=== PATIENT | female | born 1990 | race Caucasian/White ===

== ENCOUNTER 2019-05-04 09:34 | Emergency (ER) | payer OTHER ==
[2019-05-04 09:40] VITALS: BP 111/64; PULSE 85; TEMP 98.1; BMI 26.0
--- NOTE | 2019-05-04 09:50 | PDOC ---
History of Present Illness - General Chief Complaint: Pain Stated Complaint: lower abdominal pain and constipation Time Seen by Provider: 05/04/19 09:40 History Source: Patient Exam Limitations: No Limitations - History of Present Illness Travel History: No Initial Comments: 05/04/19 10:20 28y F no pmhx presents with complaint of abdominal pain. Patient started states that approximately 8 AM yesterday she began to have intermittent lower abdominal discomfort, stating feels like she needs to have bowel movement. Patient states that she took some [id number] laxatives, she did have a bowel movement last night with some improvement of her pain. Pain she describes as a sharp nonradiating discomfort Describing it as she feels like she needs to pass gas. There is no associated fever, chills, Nausea, vomiting. The patient's bowel movements are normal and are not particularly hard. Patient denies any other symptoms including Cough, shortness of breath, back pain, Vaginal bleeding, vaginal discharge, diarrhea, melena. Patient denies any history of abdominal surgery in the past. Her LMP was approximately 2 weeks ago. social: denies recreational drug use. smoking fPID in [facility] Past History - Past Medical History Allergies/Adverse Reactions: Allergies Allergy/AdvReac Type Severity Reaction Status Date / Time No Known Allergies Allergy Verified 05/04/19 09:35 Home Medications: Ambulatory Orders Fluoxetine HCl [Prozac] 40 mg PO HS 05/04/19 COPD: No Psychiatric Problems: Yes - Psycho Social/Smoking Cessation Hx Smoking History: Never smoked Hx Alcohol Use: Yes (occasionally) Drug/Substance Use Hx: No Review of Systems - Review of Systems Able to Perform ROS?: Yes Comments:: 05/04/19 10:23 Constitutional - no reported Fever, Chills, HEENT: no reported vision changes, sore throat Respiratory: no reported cough, sob, hemoptysis Cardiac: no reported chest pain, palpitations, light headedness, leg swelling Abd/GI: +abd pain, no reported nausea, vomiting, blood per rectum, melena, diarrhea : no reported dysuria, frequency, discharge Musculskelatal - no reported back pain, joint swelling skin - no reported bruising, erythema, rash neurological: no reported headache, numbness, focal weakness, tingling, ataxia, hematologic: no reported easy bruising, easy bleeding *Physical Exam - Vital Signs Last Vital Signs Temp Pulse Resp BP Pulse Ox 98.1 F 85 18 111/64 97 05/04/19 09:35 05/04/19 09:35 05/04/19 09:35 05/04/19 09:35 05/04/19 09:35 - Physical Exam 05/04/19 10:24 GENERAL: The patient is awake, alert, and fully oriented, Nontoxic - in no acute distress. HEAD: Normocephalic, atraumatic. EYES: extraocular movements intact, sclera anicteric, conjunctiva clear. ENT: Normal voice, Moist mucous membranes. NECK: Normal range of motion, supple LUNGS: Breath sounds equal, clear to auscultation bilaterally. No wheezes, no rhonchi, no rales. HEART: Regular rate and rhythm, normal S1 and S2 without murmur, rub or gallop. ABDOMEN: Soft, mild diffuse lower/suprapubic abd tenderness, No guarding, no rebound. No CVA tenderness EXTREMITIES: Normal range of motion, no edema. NEUROLOGICAL: No facial assymetry, Normal speech, PSYCH: Normal mood, normal affect. SKIN: Warm, Dry, normal turgor, ED Treatment Course - LABORATORY CBC & Chemistry Diagram: 05/04/19 09:55 05/04/19 09:55 Medical Decision Making - Medical Decision Making 05/04/19 12:49 The patient's blood work and UA are reviewed. The patient's ultrasound also reviewed noted for a likely partially ruptured cyst in the left ovary. After further history the patient notes that her pain was very severe this morning and then improved upon arrival to the point where the patient was deciding whether to come get evaluated or not. She has been relatively pain- free otherwise except for when I am pushing on her lower abdomen. Patient notes that she is feeling improved and she was asymptomatic. Without any abdominal pain at this time Considered possible appendicitis, diverticulitis however the patient has no other symptoms suggestive of it. So no acute onset of pain improvement I suspect it may be due to the partial a ruptured cyst I will refer the patient to INFORMATION OPERATOR, return precautions were discussed, shared decision making regarding further imaging. I discussed the physical exam findings, ancillary test results and final diagnoses with the patient. I answered all of the patient's questions. The patient was satisfied with the care received and felt comfortable with the discharge plan and treatment plan. The patient will call their primary care physician within 24 hours to arrange follow-up and will return to the Emergency Department with any new, persistent or worsening symptoms. Discharge - Discharge Information Problems reviewed: Yes Clinical Impression/Diagnosis: Ovarian cyst Qualifiers: Laterality: left Qualified Code(s): N83.202 - Unspecified ovarian cyst, left side Condition: Improved Disposition: HOME - Admission No - Follow up/Referral Referrals: Scott Crook [Non Staff, Medical] - - Patient Discharge Instructions Patient Printed Discharge Instructions: DI for Ovarian Cyst Additional Instructions: Return to the emergency department immediately with ANY new, persistent or worsening symptoms including worsening abdominal pain, fevers, inability to tolerate oral intake, chest pain, shortness of breath or any other concerns. You can take Tylenol Motrin for any minor discomfort however if the pain gets worse, you have any fevers other concerns return immediately so we can continue our work-up including a possible CT of your abdomen You MUST call and follow up with your principle industrial hygienist within 5-6 days. Your emergency department visit is not complete without a followup with your doctor for reevaluation. Please make sure your doctor reviews the results of your emergency evaluation. A copy of your Ultrasound was included, please review this with your doctor. Print Language: GERMAN - Post Discharge Activity Work/Back to School Note: Back to Work
[2019-05-04 10:12] LABS: PLATELET COUNT 197 K/MM3 (134-434); RDW 13.5 % (11.6-15.6); WHITE BLOOD COUNT 5.7 K/mm3 (4.0-10.8)
[2019-05-04 10:14] LABS: HEMATOCRIT 36.1 % (32.4-45.2); MCH 30.2 pg (25.7-33.7); MCHC 33.3 g/dl (32.0-36.0); MEAN CELL VOLUME 90.6 fl (80-96); MEAN PLT VOLUME 8.7 fl (7.5-11.1); RBC 3.98 M/mm3 (3.60-5.2)
[2019-05-04 10:20] LABS: BILIRUBIN,TOTAL 0.6 mg/dl (0.2-1); CALCIUM 8.6 mg/dl (8.5-10); CREATININE 0.7 mg/dl (0.55-1.3); TOT PROT 6.3 g/dl (6.4-8.2)
[2019-05-04 10:22] LABS: EPITHELIAL CELLS FEW /hpf
[2019-05-04 10:46] LABS: PLATELET ESTIMATE ADEQUATE
[2019-05-04] MEDS ORDERED: ACETAMINOPHEN 325 MG TABLET (FP) PO ONE (12:00)
[2019-05-04] MEDS ORDERED: ACETAMINOPHEN 325 MG TABLET (FP) ONE (12:03)
== END 2019-05-04 13:02 | disposition home or self-care (01) ==
LOC: FER 09:34
DX: N83.202 Unspecified ovarian cyst, left side (principal)
CPT/HCPCS: 36415; 76830-TC; 80053; 81003; 81015; 84703; 85025; 99283-25